=== PATIENT | female | born 1935 | race African-American/Black ===

== ENCOUNTER → 2017-11-27 | Outpatient (CLI) | payer MEDICARE, OTHER | END | disposition home or self-care (01) | LOC: CARD 11:29 | PROVIDERS: ATTEND Internal Medicine Pulmonary Disease | DX: Z01.818 Encounter for other preprocedural examination (principal); I51.7 Cardiomegaly; J44.9 Chronic obstructive pulmonary disease, unspecified; R00.1 Bradycardia, unspecified; R94.31 Abnormal electrocardiogram [ECG] [EKG] | CPT/HCPCS: 71046; 93005 ==

== ENCOUNTER 2017-12-16 05:30 | Day surgery (SDC) | payer MEDICARE, OTHER ==
[~2017-12-16] VITALS: Ht 156.2 cm; Wt 77.1 kg
[2017-12-16] MEDS ORDERED: PHENYLEPHRINE HCL 10% OPHTH DROPS 5ML RIGHTEYE ONE (06:10)
[2017-12-16] MEDS ORDERED: CYCLOPENTOLATE HCL 1% OPHTH DROPS 2ML RIGHTEYE ONE (06:10)
[2017-12-16] MEDS ORDERED: TROPICAMIDE 1% OPHTH DROPS 15ML RIGHTEYE ONE (06:10)
[2017-12-16] MEDS ORDERED: ALLO100T PO (06:24)
[2017-12-16] MEDS ORDERED: SIMV40TA2 PO (06:24)
[2017-12-16] MEDS ORDERED: FAMO20TA8 PO (06:24)
[2017-12-16] MEDS ORDERED: POTA10TA11 PO (06:24)
[2017-12-16] MEDS ORDERED: TERA1CAP4 PO (06:24)
[2017-12-16] MEDS ORDERED: TRIA1TAB92 PO (06:24)
[2017-12-16] MEDS ORDERED: NIFE30TA94 PO (06:24)
[2017-12-16] MEDS ORDERED: LOSA100T3 PO (06:24)
[2017-12-16] MEDS ORDERED: LACTATED RINGERS 1,000 ML IV SCH (06:30)
[2017-12-16] MEDS ORDERED: BALANCED SALT IRRIG SOLN COMB1 500ML OP ONE (07:00)
[2017-12-16] MEDS ORDERED: HYALURONATE SODIUM 14 MG/ML 0.85ML SYRINGE IO ONE (07:11)
[2017-12-16] MEDS ORDERED: LIDOCAINE HCL/PF 1% 10 MG/ML 5ML VIAL ONE (07:55)
[2017-12-16] MEDS ORDERED: FENTANYL CITRATE/PF 50MCG/ML 2ML VIAL ONE (07:55)
[2017-12-16] MEDS ORDERED: PROPOFOL 200MG/20ML VIAL IV ONE (07:55)
[2017-12-16] MEDS ORDERED: MIDAZOLAM HCL 2 MG/2 ML VIAL ONE (07:55)
[2017-12-16] MEDS ORDERED: SUCCINYLCHOLINE CHLORIDE 200MG/10ML VIAL IV ONE (07:55)
[2017-12-16] MEDS ORDERED: SODIUM CHLORIDE 0.9% 1,000 ML IV ONE (08:16)
[2017-12-16] MEDS ORDERED: ONDANSETRON HCL 4MG/2ML VIAL IV PRN (08:30)
[2017-12-16] MEDS ORDERED: PREDNISOLONE ACETATE 1% OPHTH DROPS 1ML ONE (15:07)
[2017-12-16] MEDS ORDERED: PHENYLEPHRINE HCL 10% OPHTH DROPS 5ML ONE (15:07)
[2017-12-16] MEDS ORDERED: BUPIVACAINE HCL/PF 0.75% (7.5MG/ML) 10ML ONE (15:07)
[2017-12-16] MEDS ORDERED: LIDOCAINE HCL 2%/EPINEPHRINE 1:100,000 20 ML VIAL INFIL ONE (15:07)
[2017-12-16] MEDS ORDERED: NEO/POLYMYX B SULF/DEXAMETH OPHTH OINT 3.5GM ONE (15:07)
[2017-12-16] MEDS ORDERED: CYCLOPENTOLATE HCL 1% OPHTH DROPS 2ML ONE (15:07)
[2017-12-16] MEDS ORDERED: CIPROFLOXACIN 0.3% OPHTH SOLN 2.5ML ONE (15:07)
[2017-12-16] MEDS ORDERED: TETRACAINE 0.5% OPHTH DROPS 4ML ONE (15:07)
[2017-12-16] MEDS ORDERED: TROPICAMIDE 1% OPHTH DROPS 15ML ONE (15:07)
[2017-12-16] MEDS ORDERED: BALANCED SALT IRRIG SOLN 15ML ONE (15:07)
== END 2017-12-16 10:08 | disposition home or self-care (01) ==
LOC: OR 05:30
PROVIDERS: ATTEND Ophthalmology
DX: H25.89 Other age-related cataract (principal); Z88.1 Allergy status to other antibiotic agents; K21.9 Gastro-esophageal reflux disease without esophagitis; N18.9 Chronic kidney disease, unspecified; E78.4 Other hyperlipidemia; J44.9 Chronic obstructive pulmonary disease, unspecified; Z98.890 Other specified postprocedural states; Z79.899 Other long term (current) drug therapy
CPT/HCPCS: 66984; J0330; J2250; J3010; J3490; J7120; V2632; J2704

== ENCOUNTER → 2018-05-11 | Outpatient (CLI) | payer MEDICARE, OTHER ==
[~2018-05-11] MED LIST: ALLO100T PO; FAMO20TA8 PO; LOSA100T3 PO; NIFE30TA94 PO; POTA10TA11 PO; SIMV40TA2 PO; TERA1CAP4 PO; TRIA1TAB92 PO
== END | disposition home or self-care (01) ==
LOC: RAD 13:25
PROVIDERS: ATTEND Internal Medicine Pulmonary Disease
DX: Z01.818 Encounter for other preprocedural examination (principal); R94.31 Abnormal electrocardiogram [ECG] [EKG]
CPT/HCPCS: 93005

== ENCOUNTER 2018-06-02 05:34 | Day surgery (SDC) | payer MEDICARE, OTHER ==
[~2018-06-02] VITALS: Ht 154.9 cm; Wt 77.1 kg
[2018-06-02] MEDS ORDERED: CYCLOPENTOLATE HCL 1% OPHTH DROPS 2ML LEFTEYE SCH (06:10)
[2018-06-02] MEDS ORDERED: PHENYLEPHRINE HCL 10% OPHTH DROPS 5ML LEFTEYE SCH (06:10)
[2018-06-02] MEDS ORDERED: TROPICAMIDE 1% OPHTH DROPS 15ML LEFTEYE SCH (06:10)
[2018-06-02] MEDS ORDERED: BALANCED SALT IRRIG SOLN COMB2 500ML OP ONE (06:15)
[2018-06-02] MEDS ORDERED: LACTATED RINGERS 1,000 ML IV SCH (06:30)
[2018-06-02] MEDS ORDERED: HYALURONATE SODIUM 14 MG/ML 0.85ML SYRINGE IO ONE (06:46)
[2018-06-02] MEDS ORDERED: MIDAZOLAM HCL 2 MG/2 ML VIAL ONE (07:34)
[2018-06-02] MEDS ORDERED: FENTANYL CITRATE/PF 50MCG/ML 2ML VIAL ONE (07:34)
[2018-06-02] MEDS ORDERED: PROPOFOL 200MG/20ML VIAL IV ONE (08:01)
[2018-06-02] MEDS ORDERED: ACETAMINOPHEN 325MG TABLET PO PRN (08:30)
[2018-06-02] MEDS ORDERED: ONDANSETRON HCL 4MG/2ML INJ IV PRN (08:30)
[2018-06-02] MEDS ORDERED: CALC300T4 PO (09:02)
[2018-06-02] MEDS ORDERED: BALANCED SALT IRRIG SOLN 15ML ONE (15:01)
[2018-06-02] MEDS ORDERED: LIDOCAINE HCL/PF 2% 20 MG/ML 10ML VIAL ONE (15:01)
[2018-06-02] MEDS ORDERED: CYCLOPENTOLATE HCL 1% OPHTH DROPS 2ML ONE (15:01)
[2018-06-02] MEDS ORDERED: PREDNISOLONE ACETATE 1% OPHTH DROPS 1ML ONE (15:01)
[2018-06-02] MEDS ORDERED: BUPIVACAINE HCL/PF 0.75% (7.5MG/ML) 10ML ONE (15:01)
[2018-06-02] MEDS ORDERED: LIDOCAINE HCL 2%/EPINEPHRINE 1:100,000 20 ML VIAL INFIL ONE (15:01)
[2018-06-02] MEDS ORDERED: PHENYLEPHRINE HCL 10% OPHTH DROPS 5ML ONE (15:01)
[2018-06-02] MEDS ORDERED: NEO/POLYMYX B SULF/DEXAMETH OPHTH OINT 3.5GM ONE (15:01)
[2018-06-02] MEDS ORDERED: TETRACAINE 0.5% OPHTH DROPS 4ML ONE (15:01)
[2018-06-02] MEDS ORDERED: TROPICAMIDE 1% OPHTH DROPS 15ML ONE (15:01)
[2018-06-02] MEDS ORDERED: OFLOXACIN 0.3% OPHTH SOLN 5ML ONE (15:16)
== END 2018-06-02 11:25 | disposition home or self-care (01) ==
LOC: OR 05:34
PROVIDERS: ATTEND Ophthalmology
DX: H25.012 Cortical age-related cataract, left eye (principal); I10 Essential (primary) hypertension; M10.9 Gout, unspecified; Z88.0 Allergy status to penicillin; Z79.899 Other long term (current) drug therapy; Z98.890 Other specified postprocedural states
CPT/HCPCS: 66984; J2250; J3010; J3490; J7120; V2632; J2704